=== PATIENT | female | born 1955 | race African-American/Black ===

== ENCOUNTER 2023-04-22 07:40 | Day surgery (SDC) | payer MEDICARE ==
[2023-04-20 14:43] VITALS: BMI 26.2
[2023-04-22 08:37] LABS: Hematocrit 35.6 % (36.0-47.0)
[2023-04-22] MEDS ORDERED: SUGAMMADEX SODIUM 200 MG/2 ML VIAL ONE (10:28)
[2023-04-22] MEDS ORDERED: fentaNYL PF 100 MCG/2 ML SYRINGE ONE (10:28)
[2023-04-22] MEDS ORDERED: EPINEPHrine 1 MG/ML AMP ONE ×2 (10:28→10:31)
[2023-04-22] MEDS ORDERED: Rocuronium Bromide 10 MG/ML (10ML VIAL) ONE (10:29)
[2023-04-22] MEDS ORDERED: Ondansetron PF 4 MG/2 ML Vial ONE (10:29)
[2023-04-22] MEDS ORDERED: Dexamethasone 20 MG/5 ML VIAL ONE (10:29)
[2023-04-22] MEDS ORDERED: Lidocaine 1% PF 5 ML VIAL ONE (10:29)
[2023-04-22] MEDS ORDERED: ePHEDrine Sulfate 50 MG/10 ML VIAL ONE (10:29)
[2023-04-22] MEDS ORDERED: PHENYLEPHRINE-NS 100 MCG/ML 10 ML SYRINGE ONE (10:29)
[2023-04-22] MEDS ORDERED: PROPOFOL 200 MG/20 ML VIAL ONE (10:29)
== END 2023-04-22 13:28 | disposition home or self-care (01) ==
LOC: SDC 07:40
PROVIDERS: ATTEND Specialist
PROC: 0CJS8ZZ Inspection of Larynx, Via Natural or Artificial Opening Endoscopic (ICD-10-PCS; principal; 2023-04-22)
DX: R13.10 Dysphagia, unspecified (principal); R49.0 Dysphonia; Z85.21 Personal history of malignant neoplasm of larynx
CPT/HCPCS: 36416; 85014; 85018; 93005; 93010; J0171; J1100; J2405; J2704